=== PATIENT | female | born 1990 | race Caucasian/White ===

== ENCOUNTER → 2018-02-03 | Outpatient (CLI) | payer OTHER | END | disposition home or self-care (01) | LOC: CFH 12:46 | PROVIDERS: ATTEND Obstetrics & Gynecology | DX: N63.10 Unspecified lump in the right breast, unspecified quadrant (principal); Z80.3 Family history of malignant neoplasm of breast ==

== ENCOUNTER 2018-03-22 16:50 | Outpatient (CLI) | payer OTHER ==
[~2018-03-22] VITALS: Ht 160 cm; Wt 78.6 kg
[2018-03-22 17:23] VITALS: BP 140/91
[2018-03-22 17:40] LABS: MICROSCOPIC NOT IND
[2018-03-22 17:48] LABS: ALANINE AMINOTRANSFERASE 15 U/L (12-78); ALBUMIN 2.7 g/dL (3.4-5.0); ANION GAP 12 mmol/L (5-15); CALCIUM 8.1 mg/dL (8.5-10.1); CHLORIDE 106 mmol/L (98-107); CREATININE 0.46 mg/dL (0.55-1.02)
[2018-03-22 17:50] LABS: ALKALINE PHOSPHATASE 113 U/L (45-117); BILIRUBIN, DIRECT < 0.1 mg/dL (0.1-0.2); BILIRUBIN,TOTAL 0.2 mg/dL (0.2-1.0)
[2018-03-22 17:52] LABS: CREATININE,URINE RANDOM 45.2 mg/dL
[2018-03-22 17:59] LABS: BASOPHILS # (AUTO) 0.01 x10^3/uL (0-0.1); BASOPHILS % (AUTO) 0 % (0-1); EOSINOPHILS # (AUTO) 0.07 x10^3/uL (0-0.4); EOSINOPHILS % (AUTO) 1 % (1-7); LYMPHOCYTES # (AUTO) 1.92 x10^3/uL (1-3.4); LYMPHOCYTES % (AUTO) 16 % (22-44); MD NO; MEAN CORPUSCULAR HEMOGLOBIN 31.7 pg (27.0-34.8); MEAN CORPUSCULAR HGB CONC 34.3 g/dL (32.4-35.8); MEAN CORPUSCULAR VOLUME 92.4 fL (80-100); MEAN PLATELET VOLUME 7.8 fL (7.4-10.4); MONOCYTES # (AUTO) 0.62 x10^3/uL (0.2-0.8); MONOCYTES % (AUTO) 5 % (2-9); NEUTROPHILS # (AUTO) 9.59 x10^3/uL (1.8-6.8); NEUTROPHILS % (AUTO) 79 % (42-75); PLATELET COUNT 300 x10^3/uL (130-400); RED BLOOD COUNT 3.81 x10^6/uL (3.82-5.3); RED CELL DISTRIBUTION WIDTH 12.5 % (9.6-15.2)
== END 2018-03-22 19:00 | disposition home or self-care (01) ==
LOC: LDOP 16:50
PROVIDERS: ATTEND Obstetrics & Gynecology
DX: O13.3 Gestational [pregnancy-induced] hypertension without significant proteinuria, third trimester (principal); Z3A.31 31 weeks gestation of pregnancy
CPT/HCPCS: 36415; 59025; 76819; 80053; 81003; 82248; 82570; 84156; 84550; 85025; 99201; G0463

== ENCOUNTER 2018-04-12 17:01 | Outpatient (CLI) | payer OTHER ==
[~2018-04-12] VITALS: Ht 160 cm; Wt 82.3 kg
[2018-04-12 17:24] VITALS: BP 139/92
[2018-04-12 17:35] LABS: BASOPHILS # (AUTO) 0.04 x10^3/uL (0-0.1); BASOPHILS % (AUTO) 0 % (0-1); EOSINOPHILS # (AUTO) 0.05 x10^3/uL (0-0.4); EOSINOPHILS % (AUTO) 1 % (1-7); LYMPHOCYTES % (AUTO) 18 % (22-44); MD NO; MEAN CORPUSCULAR HEMOGLOBIN 31.7 pg (27.0-34.8); MEAN CORPUSCULAR HGB CONC 34.6 g/dL (32.4-35.8); MEAN CORPUSCULAR VOLUME 91.5 fL (80-100); MEAN PLATELET VOLUME 7.5 fL (7.4-10.4); MONOCYTES % (AUTO) 7 % (2-9); NEUTROPHILS # (AUTO) 8.12 x10^3/uL (1.8-6.8); NEUTROPHILS % (AUTO) 75 % (42-75); PLATELET COUNT 311 x10^3/uL (130-400); RED BLOOD COUNT 3.86 x10^6/uL (3.82-5.3); RED CELL DISTRIBUTION WIDTH 12.3 % (9.6-15.2)
[2018-04-12 17:39] LABS: MICROSCOPIC NOT IND
[2018-04-12] MEDS ORDERED: LABE100T6 PO (17:40)
[2018-04-12] MEDS ORDERED: PNV11TAB5 PO (17:40)
[2018-04-12] MEDS ORDERED: ASPI-515 PO (17:41)
[2018-04-12 17:44] LABS: PROTEIN/CREATININE RATIO,URINE < 222 (0-200); TOTAL PROTEIN,URINE RANDOM < 5 mg/dL (0-12)
[2018-04-12 17:45] LABS: ALANINE AMINOTRANSFERASE 11 U/L (12-78); ALBUMIN 2.6 g/dL (3.4-5.0); ANION GAP 5 mmol/L (5-15); CALCIUM 8.4 mg/dL (8.5-10.1); CHLORIDE 110 mmol/L (98-107)
[2018-04-12 17:47] LABS: ALKALINE PHOSPHATASE 168 U/L (45-117); BILIRUBIN,TOTAL 0.4 mg/dL (0.2-1.0); TOTAL PROTEIN 7.2 g/dL (6.4-8.2)
[2018-04-12 17:48] LABS: BILIRUBIN, DIRECT < 0.1 mg/dL (0.1-0.2)
[2018-04-12] MEDS ORDERED: LABETALOL 100 MG TABLET PO ONE (18:30)
[2018-04-12] MEDS ORDERED: LABETALOL 100 MG TABLET ONE (18:39)
== END 2018-04-12 18:55 | disposition home or self-care (01) ==
LOC: LDOP 17:01
PROVIDERS: ATTEND Obstetrics & Gynecology
DX: O13.3 Gestational [pregnancy-induced] hypertension without significant proteinuria, third trimester (principal); Z3A.34 34 weeks gestation of pregnancy
CPT/HCPCS: 36415; 59025; 80053; 81003; 82248; 82570; 84156; 84550; 85025; 99211; G0463

== ENCOUNTER 2018-05-22 10:31 | Inpatient (IN) | payer OTHER ==
[~2018-05-22] VITALS: Ht 160 cm; Wt 84.0 kg
[~2018-05-22 10:31] MED LIST: ASPI-515 PO; LABE100T6 PO; PNV11TAB5 PO
[2018-05-23] MEDS: D5%-LACTATED RINGERS 1,000 ML IV SCH (02:00)
[2018-05-23] MEDS: LACTATED RINGERS 1,000 ML IV SCH ×2 (02:05→05:30)
[2018-05-23] MEDS ORDERED: OXYTOCIN 30U/ 0.9% NaCL 500ML 500 ML IV PRN (06:03)
[2018-05-23] MEDS ORDERED: OXYTOCIN 30U/ 0.9% NaCL 500ML 500 ML IV ONE (06:03)
[2018-05-23 06:16] VITALS: BP 142/83
[2018-05-23] MEDS ORDERED: MISOPROSTOL 25 MCG TABLET ONE ×4 (06:27→23:05)
[2018-05-23] MEDS ORDERED: OXYTOCIN 30U/ 0.9% NaCL 500ML 500 ML ONE (06:27)
[2018-05-23] MEDS ORDERED: LIDOCAINE/PF 1%, 30ML ONE (06:27)
[2018-05-23] MEDS ORDERED: MISOPROSTOL 200 MCG TABLET ONE (06:27)
[2018-05-23] MEDS ORDERED: ONDANSETRON 2MG/ML, 2ML IVPush PRN (06:30)
[2018-05-23] MEDS ORDERED: FENTANYL PF 100 MCG/2ML IVPush PRN (06:30)
[2018-05-23] MEDS ORDERED: ALUMINUM/MAG/SIMETHICONE 30 ML UDC PO PRN (06:30)
[2018-05-23] MEDS ORDERED: BUTORPHANOL 1 MG/ML, 1ML IVPush PRN (06:30)
[2018-05-23] MEDS ORDERED: PLEASE ENTER HEIGHT AND WEIGHT MC SCH (06:30)
[2018-05-23] MEDS ORDERED: FENTANYL PF 100 MCG/2ML IV PRN (06:30)
[2018-05-23 06:51] LABS: BASOPHILS # (AUTO) 0.04 x10^3/uL (0-0.1); BASOPHILS % (AUTO) 0 % (0-1); EOSINOPHILS # (AUTO) 0.15 x10^3/uL (0-0.4); EOSINOPHILS % (AUTO) 2 % (1-7); LYMPHOCYTES # (AUTO) 2.11 x10^3/uL (1-3.4); LYMPHOCYTES % (AUTO) 24 % (22-44); MD NO; MEAN CORPUSCULAR HEMOGLOBIN 29.8 pg (27.0-34.8); MEAN CORPUSCULAR HGB CONC 33.8 g/dL (32.4-35.8); MEAN PLATELET VOLUME 8.4 fL (7.4-10.4); MONOCYTES # (AUTO) 0.61 x10^3/uL (0.2-0.8); MONOCYTES % (AUTO) 7 % (2-9); NEUTROPHILS # (AUTO) 5.87 x10^3/uL (1.8-6.8); NEUTROPHILS % (AUTO) 67 % (42-75); PLATELET COUNT 299 x10^3/uL (130-400); RED BLOOD COUNT 3.76 x10^6/uL (3.82-5.3); RED CELL DISTRIBUTION WIDTH 13.2 % (9.6-15.2)
[2018-05-23] MEDS ORDERED: NEWBORN KIT ONE (06:58)
[2018-05-23] MEDS: MISOPROSTOL 25 MCG TABLET VG PRN ×3 (07:05→23:26)
[2018-05-23] MEDS ORDERED: LABETALOL 100 MG TABLET ONE ×2 (08:43→23:29)
[2018-05-23] MEDS ORDERED: ACETAMINOPHEN 325 MG TABLET ONE ×2 (08:43→20:22)
[2018-05-23] MEDS: ACETAMINOPHEN 325 MG TABLET PO PRN ×2 (08:45→20:23)
[2018-05-23] MEDS: LABETALOL 100 MG TABLET PO SCH ×2 (08:45→23:33)
[2018-05-23] MEDS ORDERED: CALCIUM CARBONATE 500 MG TAB.CHEW ONE (23:26)
[2018-05-23] MEDS: CALCIUM CARBONATE 500 MG TAB.CHEW PO PRN (23:32)
[2018-05-24 06:34] LABS: BASOPHILS # (AUTO) 0.04 x10^3/uL (0-0.1); BASOPHILS % (AUTO) 0 % (0-1); EOSINOPHILS # (AUTO) 0.05 x10^3/uL (0-0.4); EOSINOPHILS % (AUTO) 0 % (1-7); LYMPHOCYTES # (AUTO) 1.91 x10^3/uL (1-3.4); LYMPHOCYTES % (AUTO) 15 % (22-44); MD NO; MEAN CORPUSCULAR HEMOGLOBIN 29.7 pg (27.0-34.8); MEAN CORPUSCULAR HGB CONC 33.3 g/dL (32.4-35.8); MEAN CORPUSCULAR VOLUME 89.2 fL (80-100); MEAN PLATELET VOLUME 8.3 fL (7.4-10.4); MONOCYTES # (AUTO) 0.73 x10^3/uL (0.2-0.8); MONOCYTES % (AUTO) 6 % (2-9); NEUTROPHILS # (AUTO) 9.69 x10^3/uL (1.8-6.8); NEUTROPHILS % (AUTO) 78 % (42-75); PLATELET COUNT 283 x10^3/uL (130-400); RED BLOOD COUNT 4.01 x10^6/uL (3.82-5.3); RED CELL DISTRIBUTION WIDTH 12.9 % (9.6-15.2)
[2018-05-24 06:41] LABS: ALANINE AMINOTRANSFERASE 13 U/L (12-78); ALBUMIN 2.6 g/dL (3.4-5.0); ANION GAP 10 mmol/L (5-15); CALCIUM 9.2 mg/dL (8.5-10.1); CHLORIDE 109 mmol/L (98-107); CREATININE 0.53 mg/dL (0.55-1.02)
[2018-05-24 06:43] LABS: BILIRUBIN, DIRECT < 0.1 mg/dL (0.1-0.2)
[2018-05-24 06:44] LABS: ALKALINE PHOSPHATASE 240 U/L (45-117); BILIRUBIN,TOTAL 0.2 mg/dL (0.2-1.0); TOTAL PROTEIN 6.9 g/dL (6.4-8.2)
[2018-05-24 07:30] LABS: MICROSCOPIC NOT IND
[2018-05-24 07:39] LABS: PROTEIN/CREATININE RATIO,URINE < 147 (0-200); TOTAL PROTEIN,URINE RANDOM < 5 mg/dL (0-12)
[2018-05-24] MEDS ORDERED: ACETAMINOPHEN 325 MG TABLET ONE ×2 (08:43)
[2018-05-24] MEDS: ACETAMINOPHEN 325 MG TABLET PO PRN (08:45)
[2018-05-24] MEDS: CALCIUM CARBONATE 500 MG TAB.CHEW PO PRN ×2 (08:49→09:22)
[2018-05-24] MEDS ORDERED: ZOLPIDEM 5MG TABLET ONE (09:18)
[2018-05-24] MEDS ORDERED: LABETALOL 100 MG TABLET ONE ×3 (09:19→21:11)
[2018-05-24] MEDS ORDERED: CALCIUM CARBONATE 500 MG TAB.CHEW ONE (09:19)
[2018-05-24] MEDS: LABETALOL 100 MG TABLET PO SCH ×2 (09:22→21:00)
[2018-05-24] MEDS ORDERED: ZOLPIDEM 5MG TABLET PO PRN (09:30)
[2018-05-24] MEDS: MISOPROSTOL 25 MCG TABLET VG PRN (11:03)
[2018-05-24] MEDS ORDERED: MISOPROSTOL 25 MCG TABLET ONE ×2 (11:03→15:06)
[2018-05-24 19:29] VITALS: BP 163/94
[2018-05-24] MEDS ORDERED: LABETALOL 5MG/ML, 20ML ONE (21:11)
[2018-05-24] MEDS ORDERED: LABETALOL 100 MG TABLET PO ONE (21:30)
[2018-05-24] MEDS ORDERED: LABETALOL 100 MG TABLET PO SCH (21:30)
[2018-05-24] MEDS ORDERED: FENTANYL/BUPIV./NS/PF 250 ML EPIDCONT SCH ×2 (21:36→22:53)
[2018-05-24] MEDS ORDERED: FENTANYL PF 500 MCG, BUPIVACAINE/PF 0.5%, 30ML 62.5 ML in SODIUM CHLORIDE 0.9% 177.5 ML EPIDCONT SCH (22:00)
[2018-05-24] MEDS ORDERED: FENTANYL PF 100 MCG/2ML ONE (22:11)
[2018-05-24] MEDS ORDERED: BUPIVACAINE/PF 0.5% ONE (22:11)
[2018-05-24] MEDS ORDERED: LACTATED RINGERS 1,000 ML IV SCH (22:53)
[2018-05-24] MEDS ORDERED: ONDANSETRON 2MG/ML, 2ML IVPush PRN (23:00)
[2018-05-24] MEDS ORDERED: LACTATED RINGERS 1,000 ML IVBOLUS PRN (23:00)
[2018-05-24] MEDS ORDERED: EPHEDRINE 50 MG/ML, 1ML IVPush PRN (23:00)
[2018-05-25] MEDS ORDERED: ACETAMINOPHEN 500 MG TABLET ONE (05:52)
[2018-05-25] MEDS: D5%-LACTATED RINGERS 1,000 ML IV SCH ×2 (07:27→15:14)
[2018-05-25] MEDS: LABETALOL 100 MG TABLET PO SCH ×2 (09:00→21:00)
[2018-05-25] MEDS ORDERED: LABETALOL 100 MG TABLET ONE ×2 (09:04→20:42)
[2018-05-25] MEDS ORDERED: ACETAMINOPHEN 325 MG TABLET ONE ×2 (13:30→21:21)
[2018-05-25] MEDS: ACETAMINOPHEN 325 MG TABLET PO PRN ×2 (13:32→21:23)
[2018-05-25] MEDS ORDERED: METOCLOPRAMIDE 5 MG/ML, 2ML ONE (21:50)
[2018-05-25] MEDS ORDERED: SODIUM CITRATE/CITRIC ACID 30 ML UDC ONE (21:50)
[2018-05-25] MEDS: LACTATED RINGERS 1,000 ML IV SCH ×2 (21:59)
[2018-05-25] MEDS: OXYTOCIN 30U/ 0.9% NaCL 500ML 500 ML IV SCH (21:59)
[2018-05-25] MEDS ORDERED: LACTATED RINGERS 1,000 ML IV SCH (21:59)
[2018-05-25] MEDS ORDERED: ONDANSETRON 2MG/ML, 2ML IV PRN (22:00)
[2018-05-25] MEDS ORDERED: OXYcodone/APAP 5/325MG TABLET PO PRN (22:00)
[2018-05-25] MEDS ORDERED: SODIUM CITRATE/CITRIC ACID 30 ML UDC PO ONE (22:00)
[2018-05-25] MEDS ORDERED: METOCLOPRAMIDE 5 MG/ML, 2ML IV ONE (22:00)
[2018-05-25] MEDS ORDERED: MEPERIDINE/PF 50 MG/ML IM PRN (22:00)
[2018-05-25] MEDS ORDERED: morphine SULFATE 10 MG/ML, 1ML IVPush PRN (22:00)
[2018-05-25] MEDS ORDERED: ACETAMINOPHEN 325 MG TABLET PO PRN (22:00)
[2018-05-25] MEDS ORDERED: METOCLOPRAMIDE 5 MG/ML, 2ML IV PRN (22:00)
[2018-05-25] MEDS ORDERED: CARBOPROST TROMETHAMINE 250 MCG/ML, 1ML IM PRN (22:00)
[2018-05-25] MEDS ORDERED: OXYcodone IR 5MG TABLET PO PRN (22:00)
[2018-05-25] MEDS ORDERED: MISOPROSTOL 200 MCG TABLET PR PRN (22:00)
[2018-05-25] MEDS ORDERED: TRANEXAMIC ACID 100 MG/ML, 10ML ONE (22:06)
[2018-05-25] MEDS ORDERED: CEFAZOLIN 1,000 MG ONE (22:11)
[2018-05-25] MEDS ORDERED: OXYTOCIN 10 UNITS/ML, 1ML ONE (22:11)
[2018-05-25] MEDS ORDERED: EPHEDRINE 50 MG/ML, 1ML ONE (22:11)
[2018-05-25] MEDS ORDERED: DIPHENOXYLATE/ATROPINE TABLET PO PRN (23:45)
[2018-05-25] MEDS ORDERED: DIPHENOXYLATE/ATROPINE TABLET ONE (23:46)
[2018-05-26 00:40] VITALS: BP 144/92
[2018-05-26] MEDS: KETOROLAC 30 MG/1 ML IV SCH ×4 (01:45→20:45)
[2018-05-26 04:40] VITALS: BP 127/83
[2018-05-26] MEDS: LACTATED RINGERS 1,000 ML IV SCH ×5 (05:54→21:59)
[2018-05-26 06:53] LABS: MEAN CORPUSCULAR HEMOGLOBIN 29.7 pg (27.0-34.8); MEAN CORPUSCULAR HGB CONC 33.2 g/dL (32.4-35.8); MEAN CORPUSCULAR VOLUME 89.5 fL (80-100); MEAN PLATELET VOLUME 8.1 fL (7.4-10.4); PLATELET COUNT 259 x10^3/uL (130-400); RED BLOOD COUNT 3.53 x10^6/uL (3.82-5.3); RED CELL DISTRIBUTION WIDTH 13.1 % (9.6-15.2)
[2018-05-26 07:25] LABS: BASOPHILS # (AUTO) 0.03 x10^3/uL (0-0.1); BASOPHILS % (AUTO) 0 % (0-1); EOSINOPHILS % (AUTO) 0 % (1-7); LYMPHOCYTES # (AUTO) 1.31 x10^3/uL (1-3.4); LYMPHOCYTES % (AUTO) 7 % (22-44); MD SCAN; MONOCYTES % (AUTO) 6 % (2-9); NEUTROPHILS # (AUTO) 16.44 x10^3/uL (1.8-6.8); NEUTROPHILS % (AUTO) 87 % (42-75)
[2018-05-26] MEDS: OXYTOCIN 30U/ 0.9% NaCL 500ML 500 ML IV SCH ×2 (07:59→17:59)
[2018-05-26] MEDS: HYDROcodone/APAP 5/325 TABLET PO PRN ×2 (08:00→12:24)
[2018-05-26] MEDS: LABETALOL 100 MG TABLET PO SCH ×2 (08:27→20:43)
[2018-05-26 08:36] VITALS: BP 142/92
[2018-05-26] MEDS: PRENATAL VIT/IRON/FA 1 EACH TABLET PO SCH (09:00)
[2018-05-26 12:15] VITALS: BP 133/86
[2018-05-26 16:25] VITALS: BP 132/88
[2018-05-26 20:06] VITALS: BP 135/85
[2018-05-26] MEDS: DOCUSATE 100 MG CAPSULE PO PRN (20:43)
[2018-05-27 00:15] VITALS: BP 113/77
[2018-05-27] MEDS: ACETAMINOPHEN 325 MG TABLET PO PRN (00:20)
[2018-05-27] MEDS: KETOROLAC 30 MG/1 ML IV SCH ×4 (02:43→13:45)
[2018-05-27] MEDS: LACTATED RINGERS 1,000 ML IV SCH ×4 (02:51→13:59)
[2018-05-27 03:54] VITALS: BP 98/58
[2018-05-27] MEDS: OXYTOCIN 30U/ 0.9% NaCL 500ML 500 ML IV SCH ×2 (03:59→13:59)
[2018-05-27 04:04] VITALS: BP 123/87
[2018-05-27 08:00] VITALS: BP 124/84
[2018-05-27] MEDS: PRENATAL VIT/IRON/FA 1 EACH TABLET PO SCH (08:41)
[2018-05-27] MEDS: DOCUSATE 100 MG CAPSULE PO PRN (08:41)
[2018-05-27] MEDS: LABETALOL 100 MG TABLET PO SCH (08:41)
[2018-05-27] MEDS: IBUPROFEN 600 MG TABLET PO PRN ×2 (08:52→15:23)
[2018-05-27] MEDS ORDERED: DOCU-131 PO (16:04)
[2018-05-27] MEDS ORDERED: IBUP-1222 PO (16:06)
[2018-05-27] MEDS ORDERED: OXYC-302 PO (16:07)
== END 2018-05-27 18:00 | disposition home or self-care (01) | DRG 787 ==
LOC: LDIP 05-23 06:01 → 2NW 05-26 00:35
PROVIDERS: ADMIT Obstetrics & Gynecology; ATTEND Obstetrics & Gynecology
PROC: 3E0P7VZ Introduction of Hormone into Female Reproductive, Via Natural or Artificial Opening (ICD-10-PCS; 2018-05-23)
PROC: 10D00Z1 Extraction of Products of Conception, Low, Open Approach (ICD-10-PCS; principal; 2018-05-25)
DX: O13.4 Gestational [pregnancy-induced] hypertension without significant proteinuria, complicating childbirth (principal); O41.03X0 Oligohydramnios, third trimester, not applicable or unspecified; O62.1 Secondary uterine inertia; O69.81X0 Labor and delivery complicated by cord around neck, without compression, not applicable or unspecified; O33.9 Maternal care for disproportion, unspecified; O76 Abnormality in fetal heart rate and rhythm complicating labor and delivery; O99.824 Streptococcus B carrier state complicating childbirth; Z37.0 Single live birth; Z3A.39 39 weeks gestation of pregnancy
CPT/HCPCS: 36415; J7121; 76815; 80053; 81003; 82248; 82570; 82803; 84156; 84550; 85025; 86850; 86900; 89060; G0378; J0690; J1885; J3010; J3490; J2590; J2765; J7050; J7120; Q0114